=== PATIENT | female | born 1985 | race Caucasian/White ===

== ENCOUNTER 2017-02-13 06:37 | Day surgery (SDC) | payer OTHER ==
--- NOTE | 2017-02-05 16:41 | HP ---
PREOPERATIVE HISTORY AND PHYSICAL: DATE OF ADMISSION/SURGERY: 02/13/17 DATE OF OFFICE VISIT/ENCOUNTER: 02/01/17 ATTENDING SURGEON: Caryl Cheatham MD * (DICTATED BY CURTIS CHOU) PROCEDURE: Left wrist arthroscopy, TFCC debridement. CHIEF COMPLAINT: Left wrist pain. HISTORY AND PHYSICAL: This is a 31-year-old female with persistent left wrist pain. 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 She slipped and fell and hit her wrist on a banister. Then, again, she sustained an injury to the same wrist on 11/10/14, when she was holding on to a door handle and someone pulled the door open and twisted her wrist. She has failed conservative treatment including cortisone injections, Medrol Dosepak, bracing, and physical therapy. An MRI of the wrist has shown evidence of a TFCC tear. At this point, Dr. Cheatham is recommending surgical intervention in the form of wrist arthroscopy and TFCC debridement. The patient has consented to proceed. PAST MEDICAL HISTORY: 1. History of thyroid cancer. 2. GERD. PAST SURGICAL HISTORY: 1. Thyroidectomy. 2. x3. CURRENT MEDICATIONS: 1. Caltrate 600 mg daily. 2. Ibuprofen 200 mg p.r.n. 3. Levothyroxine sodium 100 mcg daily. 4. Naproxen 1 tab b.i.d. 5. Omeprazole 40 mg daily. ALLERGIES: No known drug allergies. FAMILY MEDICAL HISTORY: Diabetes, heart disease. 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 She denies tobacco use, recreational drug use, and alcohol use. REVIEW SYSTEMS: General: Negative for fever, chills, or night sweats. No known anesthesia problems. HEENT: Negative for headache, lightheadedness, or syncopal episodes. Integumentary: Negative for abrasions, lesions, or open wounds. Cardiothoracic: Negative for hypertension, chest pain, palpitations, or edema. Pulmonary: Negative for shortness of breath with exertion, chronic cough, COPD. GI: Positive for GERD. Negative for nausea, vomiting, diarrhea, or constipation. : Negative for nocturia, urinary frequency, urgency, history of UTIs, or kidney problems. Musculoskeletal: Positive for current complaint. Negative for chronic or intermittent back pain. Neurological: Negative for paresthesias, numbness, history of seizure, stroke, or epilepsy. Endocrine: Positive for hypothyroid secondary to thyroid cancer. Negative for diabetes. Hematologic: Negative for easy bruising, anemia, excessive bleeding , or history of DVT. Infectious Disease: Negative for history of MRSA, hepatitis C, or HIV. PHYSICAL EXAMINATION GENERAL: Well-developed, well-nourished, 31-year-old female in no acute distress. VITAL SIGNS: Height 5 feet 3 inches, weight 115 pounds. Pulse rate 68, blood pressure 100/62. HEENT: Normocephalic, atraumatic. Pupils are equal, round, and reactive to light and accommodation. Throat is clear. NECK: Supple. No palpable lymph nodes. PULMONARY: Lungs are clear to auscultation bilaterally. No wheezes, rales, or rhonchi. CARDIOVASCULAR: Regular rate and rhythm. S1, S2. No murmurs, rubs, or gallops. No edema. ABDOMEN: Positive bowel sounds, soft, nontender. MUSCULOSKELETAL: On exam of her left wrist, she has tenderness just distal to the ulna as well as along the FCU tendon at the pisiform and proximally. She has pain with ulnar deviation both actively and passively. Pain with supination both actively and passively. No pain with wrist flexion or extension. She has good motion in her fingers. There is no tenderness at the distal radioulnar joint. Neurovascular function is intact. NEUROLOGIC: Alert and oriented x3. Cranial nerves II through XII are intact. Sensation is intact to light touch. DIAGNOSTIC STUDIES: MRI of the left wrist shows evidence of TFCC tear. IMPRESSION: Persistent left wrist pain after injury, triangular fibrocartilage complex tear. PLAN: The patient is scheduled to undergo a left wrist arthroscopy and TFCC debridement with Dr. Cheatham on 02/13/17. She will return to the office 10 to 14 days postop for followup and suture removal. A prescription for Ultracet was e - scribed to the patient's pharmacy for postoperative pain management. CURTIS CHOU [id number]/[facility] #: [id number] DONY
[~2017-02-13 06:37] MED LIST: Buffered Lidocaine 0.9% SYRIN* 5 ML/SYR SYRINGE INTRADERM ONE
[2017-02-13] MEDS ORDERED: ceFAZolin 2 GM PREMIX (*) 2 GM/50 ML BAG IVPB ONE (06:44)
[2017-02-13] MEDS ORDERED: Bupivacaine 0.5% SDV PF* 30 ML VIAL ONE (07:26)
[2017-02-13] MEDS ORDERED: ROPIVACAINE 5 MG/ML 30 ML BTL (0.5%) ONE ×2 (07:45)
[2017-02-13] MEDS ORDERED: fentaNYL* 50 MCG/ML 2 ML VIAL (100 MCG VIAL) ONE (07:53)
[2017-02-13] MEDS ORDERED: Midazolam* 1 MG/ML 5 ML VIAL (5 MG) ONE (07:53)
[2017-02-13] MEDS ORDERED: Propofol* 10 MG/ML 20 ML BTL IV PUSH ONE (08:22)
[2017-02-13] MEDS ORDERED: Ibuprofen TAB* 400 MG PO PRN (08:30)
[2017-02-13] MEDS ORDERED: oxyCODONE/Acetamin 5/325 MG* TAB PO PRN (08:30)
[2017-02-13 09:19] VITALS: BP 103/59
--- NOTE | 2017-02-14 01:59 | OP ---
CC: Caryl Cheatham MD OPERATIVE NOTE: DATE OF OPERATION: 02/13/17 - TIMO DATE OF : 81 SURGEON: Caryl Cheatham MD [employer]: CURTIS Reddy ANESTHESIOLOGIST: Abiodun Jackson MD ANESTHESIA: Axillary block. PRE-OP DIAGNOSIS: TFCC tear of the left wrist. POST-OP DIAGNOSIS: TFCC tear of the left wrist. PROCEDURE: Left wrist arthroscopy and TFCC debridement. ESTIMATED BLOOD LOSS: Zero. TOURNIQUET TIME: About 30 minutes. INDICATION FOR PROCEDURE: Usha is a 31-year-old female with pain on the ulnar aspect of her left wrist, which has failed to improve despite conservative treatments. MRI shows a TFCC tear. She presents for debridement. DESCRIPTION OF PROCEDURE: The patient was brought to the operating room and was given an axillary block anesthetic and a tourniquet was placed around her left upper arm. Skin of her left upper extremity was prepped and draped in the usual sterile fashion. The hand and forearm were exsanguinated and the tourniquet elevated to 250 mmHg. The radiocarpal joint was filled with Marcaine 0.5% plain about 7 cc and the incisions were infiltrated with the remainder of the 10 cc of Marcaine. A stab incision was made just ulnar and distal to Lorraine's tubercle and the cannula was placed in the radiocarpal joint. Diagnostic arthroscopy was performed. The scapholunate and lunotriquetral ligaments were intact. The articular surface of the radius was intact. The articular surface of the scaphoid, lunate, and triquetrum were intact. There was a tear of the TFCC central portion with surrounding synovitis. This was all debrided after a second portal was created in the 4-5 interval and a 2.0 Gator shaver was placed in the ulnar aspect of the joint. The arthroscopy instruments were removed and the third stab incision was made just distal to the first. A cannula was placed in the midcarpal joint. We were able to visualize the articular surface of the capitate, hamate, lunate and scaphoid and all again were in excellent condition. There did appear to be some tearing of the scapholunate ligament, but the arthroscope was placed back in the radiocarpal joint and this was not visible from that side. I was not able to drive the scope through between the scaphoid and lunate. The arthroscopy instruments were removed. The traction was taken off and the skin edges were reapproximated with 4-0 nylon suture. The wounds were dressed with Xeroform, 4x4, Webril, and and an Darrion wrap. The patient tolerated the procedure well and was brought to the recovery room in good condition. [id number]/[facility] #: [id number] DONY
== END 2017-02-13 09:37 | disposition home or self-care (01) ==
LOC: OREAST 06:37
PROVIDERS: ATTEND Orthopaedic Surgery
DX: S63.592A Other specified sprain of left wrist, initial encounter (principal); Z85.850 Personal history of malignant neoplasm of thyroid; K21.9 Gastro-esophageal reflux disease without esophagitis; X50.0XXA Overexertion from strenuous movement or load, initial encounter; Y92.89 Other specified places as the place of occurrence of the external cause
CPT/HCPCS: J0690; J2250; J2704; J2795; J3010